=== PATIENT | female | born 1990 | race Caucasian/White ===

== ENCOUNTER 2017-03-07 09:21 | Day surgery (SDC) | payer OTHER ==
[~2017-03-07] VITALS: Ht 165.1 cm; Wt 121.0 kg
[~2017-03-07 09:21] MED LIST: METHYLERGONOVINE 0.2 MG/ML IM ONE; OXYTOCIN 10 UNITS/ML, 1ML ONE; SILVER NITRATE STICK TP ONE
[2017-03-07] MEDS ORDERED: LIDOCAINE 1%, 2ML ONE (09:53)
[2017-03-07 09:55] VITALS: BP 171/75
[2017-03-07] MEDS ORDERED: LIDOCAINE 1%, 2ML SQ PRN (10:00)
[2017-03-07 10:11] VITALS: BP 171/75
[2017-03-07] MEDS ORDERED: SPIRONOLACTONE PO (10:11)
[2017-03-07] MEDS: LACTATED RINGERS 1,000 ML IV SCH ×2 (10:19→14:29)
[2017-03-07 10:42] LABS: BLOOD UREA NITROGEN 10 mg/dL (7-18)
[2017-03-07 10:42] LABS: PATH.CAST-FLAG NOT PRESENT; SPERM-FLAG NOT PRESENT; SRC-FLAG NOT PRESENT; XTAL-FLAG NOT PRESENT; YLC-FLAG NOT PRESENT
[2017-03-07 10:45] LABS: ASPARTATE AMINO TRANSFERASE 11 U/L (15-37)
[2017-03-07 10:46] LABS: HCG UR OBC PASS
[2017-03-07] MEDS ORDERED: MISOPROSTOL 200 MCG TABLET ONE (11:12)
[2017-03-07] MEDS ORDERED: FENTANYL PF 100 MCG/2ML ONE ×2 (16:05→16:47)
[2017-03-07] MEDS ORDERED: PROPOFOL 10 MG/ML, 20ML ONE (16:07)
[2017-03-07] MEDS ORDERED: KETOROLAC 30 MG/1 ML ONE (16:48)
[2017-03-07] MEDS ORDERED: OXYcodone 5 MG/5 ML ORAL.SOL UDC ONE (16:48)
[2017-03-07] MEDS: FENTANYL PF 100 MCG/2ML IV PRN ×2 (16:52→17:03)
[2017-03-07] MEDS ORDERED: ONDANSETRON 2MG/ML, 2ML IVPush PRN (17:00)
[2017-03-07] MEDS ORDERED: MEPERIDINE/PF 25MG/0.5ML IVPush PRN (17:00)
[2017-03-07] MEDS ORDERED: MIDAZOLAM 1 MG/ML, 2ML IV PRN (17:00)
[2017-03-07] MEDS ORDERED: hydrALAzine 20 MG/ML, 1ML IV PRN (17:00)
[2017-03-07] MEDS ORDERED: OXYcodone 5 MG/5 ML ORAL.SOL UDC PO PRN (17:00)
[2017-03-07] MEDS ORDERED: LABETALOL 5MG/ML, 20ML IV PRN (17:00)
[2017-03-07] MEDS ORDERED: HYDROmorphone 1 MG/ML, 1ML IV PRN (17:00)
[2017-03-07] MEDS ORDERED: PROMETHAZINE 25 MG/ML, 1ML IV PRN (17:00)
[2017-03-07] MEDS ORDERED: KETOROLAC 30 MG/1 ML IM ONE (17:30)
== END 2017-03-07 18:20 | disposition home or self-care (01) ==
LOC: OUT 09:21
PROVIDERS: ATTEND Obstetrics & Gynecology
DX: N85.02 Endometrial intraepithelial neoplasia [EIN] (principal); Z30.430 Encounter for insertion of intrauterine contraceptive device; E28.2 Polycystic ovarian syndrome; E66.01 Morbid (severe) obesity due to excess calories; Z68.41 Body mass index [BMI] 40.0-44.9, adult; Z90.49 Acquired absence of other specified parts of digestive tract; K08.409 Partial loss of teeth, unspecified cause, unspecified class; Z72.89 Other problems related to lifestyle; Z80.3 Family history of malignant neoplasm of breast; Z80.1 Family history of malignant neoplasm of trachea, bronchus and lung; Z83.3 Family history of diabetes mellitus; Z82.49 Family history of ischemic heart disease and other diseases of the circulatory system; Z79.899 Other long term (current) drug therapy
CPT/HCPCS: 36415; 58120; 58300; 80053; 81001; 81025; 85025; 86850; 86900; 87077; 87086; 87186; 88305; J1885; J2704; J3010; J7120; J7298; J2210; J2590